=== PATIENT | male | born 1975 | race American Indian/Alaskan Native ===

== ENCOUNTER 2017-01-07 09:24 | Emergency (ER) | payer OTHER ==
[2017-01-07 09:42] VITALS: BP 116/76; PULSE 89; RESP 19; TEMP 98; O2SAT 100
--- NOTE | 2017-01-07 09:52 | C.PDOC ---
History Of Present Illness PERSIST LBP X 2 WEEKS, WORSE TODAY. ONSET AFTER LIFTING AND BENT OVER, INITIALLY PAIN R LOWER BACK. INTERMIT, WORSE W MOVEMENT NOW FEELING L LOWER BACK , RAD L BUTTOCK. NO ASSOC WEAK NUMB. NO IMPROVE W MASSAGE THERAPY. NO MEDS TRIED. 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 LIMITED FULL EXTENSION DUE TO PAIN. GEN SPASM B/L LOWER BACK W MIN LOCAL TEND. NO LS TEND NEURO INTACT REMAINDER NEG MDM ADVISED FU CLINIC FOR MRI PRN. NSIADS, LIDODERM, FLEX, PMD FU Time Seen by Provider: 01/07/17 09:50 Chief Complaint (Nursing): Back Pain History Per: Patient History/Exam Limitations: no limitations Onset/Duration Of Symptoms: Days Current Symptoms Are (Timing): Worse Quality Of Discomfort: "Pain" Previous Symptoms: denies: Back Pain, Chronic Pain Associated Symptoms: None Recent travel outside of the [place]: No Past Medical History Reviewed: Historical Data, Nursing Documentation, Vital Signs Vital Signs: Last Vital Signs Temp 98.0 F 01/07/17 09:41 Pulse 89 01/07/17 09:41 Resp 19 01/07/17 09:41 BP 116/76 01/07/17 09:41 Pulse Ox 100 01/07/17 10:55 - Medical History PMH: No Chronic Diseases Family History: States: Unknown Family Hx - Social History Hx Alcohol Use: Yes Hx Substance Use: Yes - Immunization History Hx Tetanus Toxoid Vaccination: No Hx Influenza Vaccination: No Hx Pneumococcal Vaccination: No Review Of Systems Except As Marked, All Systems Reviewed And Found Negative. Constitutional: Negative for: Fever, Chills Cardiovascular: Negative for: Chest Pain Respiratory: Negative for: Shortness of Breath Gastrointestinal: Negative for: Nausea, Vomiting, Abdominal Pain Musculoskeletal: Positive for: Back Pain Skin: Negative for: Rash Neurological: Negative for: Weakness, Numbness Physical Exam - Physical Exam Appears: Non-toxic, Other (MODERATE DISTRESS) Skin: Normal Color, Warm, Dry Head: Atraumatic, Normacephalic Neck: No Midline Cervical Tenderness, No Paracervical Tenderness, Supple Chest: Symmetrical Cardiovascular: Rhythm Regular Respiratory: Normal Breath Sounds, No Rales, No Rhonchi, No Wheezing Gastrointestinal/Abdominal: Soft, No Tenderness Back: No Vertebral Tenderness, Decreased ROM (LIMITED FULL EXTENSION DUE TO PAIN ), Muscle Spasm (GENERAL, BILATERAL LOWER BACK, WITH MINIMAL LOCAL TENDERNESS), Other (BACK SCOLIOSIS DUE TO PAIN? ) Extremity: Normal ROM, Capillary Refill (< 2 SEC. ) Neurological/Psych: Oriented x3, Normal Speech, Normal Cognition, Normal Motor, Normal Sensation ED Course And Treatment O2 Sat by Pulse Oximetry: 100 Progress - Re-Evaluation Re-evaluation Note: 01/07/17 09:52 NO PRIOR NJRX RECORD - Data Reviewed Data Reviewed: Other Medical Decision Making Medical Decision Making: ADVISED FOLLOW UP AT THE CLINIC FOR MRI PRN. NSIADS, LIDODERM, FLEXERIL, PMD FOLLOW UP. Disposition Counseled Patient/Family Regarding: Diagnosis, Need For Followup, Rx Given - Disposition Referrals: [facility] [Outside] [facility] [Outside] Disposition: HOME/ ROUTINE Disposition Time: 10:47 Condition: IMPROVED Prescriptions: Cyclobenzaprine [Flexeril] 10 mg PO TID #15 tab Lidocaine 5% [Lidoderm] 1 ea TD PRN PRN #10 patch PRN Reason: Pain, Moderate (4-7) Ibuprofen [Motrin] 600 mg PO Q6 #30 tab Instructions: Back Pain (ED) Forms: Work Excuse - Clinical Impression Clinical Impression: Back pain - Scribe Statement The provider has reviewed the documentation as recorded by the Lulu Carrillo Provider Attestation: All medical record entries made by the Lulu were at my direction and personally dictated by me. I have reviewed the chart and agree that the record accurately reflects my personal performance of the history, physical exam, medical decision making, and the department course for this patient. I have also personally directed, reviewed, and agree with the discharge instructions and disposition.
[2017-01-07] MEDS ORDERED: Lidocaine 5% Patch TD STA (10:50)
[2017-01-07] MEDS ORDERED: Lidocaine 5% Patch TD ONE (11:01)
== END 2017-01-07 11:20 | disposition home or self-care (01) ==
LOC: C.ER 09:24
DX: M54.5 Low back pain (principal)